=== PATIENT | female | born 1995 | race Caucasian/White ===

== ENCOUNTER 2016-07-18 08:53 | Emergency (ER) | payer SELFPAY ==
[2016-07-18 09:01] VITALS: BP 118/72
--- NOTE | 2016-07-18 09:35 | ER Document Report ---
ED General - General Chief Complaint: Back Pain Stated Complaint: back pain Notes: Patient says she's been experiencing chest pains in the center of her chest for the past couple of days. The pain is constant, but worsened by movement, deep breath, pressing on the area. Patient says she gets these chest pains "all the time for at least the past 5 years, but it got worse yesterday. Her most recent episode of such pain was in March. Was seen by medical care provider and no cause found. Patient also says that she is experiencing lower back pains for the past day and a half. Does not recall any unusual activity or straining of her back. Does not have any UTI symptoms. Some nausea but no vomiting. No significant cough or cold or chest congestion. Patient says that she gets panic attacks and suffers from anxiety for which she is seen at [facility] and she has Klonopin to take as needed. Patient denies being stressed or anxious today. Says she feels "happy go [place]". LMP early this month (July) TRAVEL OUTSIDE OF THE [place] IN LAST 30 DAYS: No - Related Data Allergies/Adverse Reactions: No Known Allergies Allergy (Verified 07/18/16 09:03) Past Medical History - Social History Smoking Status: Never Smoker Cigarette use (# per day): No Chew tobacco use (# tins/day): No Frequency of alcohol use: None Drug Abuse: None Family History: Reviewed & Not Pertinent Patient has suicidal ideation: No Patient has homicidal ideation: No Renal/ Medical History: Denies: Hx Peritoneal Dialysis Review of Systems - Review of Systems Notes: REVIEW OF SYSTEMS: CONSTITUTIONAL : Denies fever. EENT: Denies eye, ear, nose or mouth or throat pain or other symptoms. CARDIOVASCULAR: See history of present illness. RESPIRATORY: Denies cough, chest congestion, or shortness of breath. GASTROINTESTINAL: Denies abdominal pain or vomiting, or diarrhea. Some nausea. GENITOURINARY: Denies difficulty or painful urinating, urinary frequency, blood in urine. MUSCULOSKELETAL: Denies neck pain. Denies joint pain or swelling. See history of present illness regarding back pain. SKIN: Denies rash or skin lesions. NEUROLOGICAL: Denies LOC or altered mental status. Denies headache. Denies sensory loss or motor deficits. PSYCHIATRIC: History of anxiety and panic attacks ALL OTHER SYSTEMS REVIEWED AND NEGATIVE. Physical Exam - Vital signs Vitals: Temp Pulse Resp BP Pulse Ox 97.5 F 77 16 118/72 99 07/18/16 09:00 07/18/16 09:00 07/18/16 09:00 07/18/16 09:00 07/18/16 09:00 Interpretation: Normal - Notes Notes: PHYSICAL EXAMINATION: GENERAL: Well-appearing, in no acute distress. Vital signs are all normal. Does not appear to be in distress or ill. HEAD: Atraumatic, normocephalic. LUNGS: Breath sounds clear and equal bilaterally. Tender to touch or press in the upper central anterior chest region, even with the stethoscope when listening to the patient's lungs and heart. HEART: Regular rate and rhythm without murmurs. No rubs. ABDOMEN: Soft, nontender. No guarding or rebound. BACK: No tenderness throughout entire spine. Tender to press and palpate in both flank regions. EXTREMITIES: Normal range of motion without pain. PSYCH: Anxious. SKIN: Warm, dry, no rashes. Course - Re-evaluation Re-evalutation: 07/18/16 11:41 Urine looks suspicious for a UTI. I'm going to give the patient Macrobid for a week. Urine will be cultured. Advised patient that workup for her chest pain did not show any significant findings - Vital Signs Vital signs: Temp Pulse Resp BP Pulse Ox 97.5 F 77 16 118/72 100 07/18/16 11:24 07/18/16 11:24 07/18/16 11:24 07/18/16 11:24 07/18/16 11:24 - Laboratory Laboratory results interpreted by nm: 07/18/16 09:45 Urine Ketones TRACE H Ur Leukocyte Esterase LARGE H Urine microscopic confirms dipstick suggesting a UTI - Diagnostic Test Radiology results interpreted by nm: 07/18/16 10:55 Chest x-ray is normal. - EKG Interpretation by Hi EKG shows normal: Sinus rhythm Rate: Normal Rhythm: NSR Additional EKG results interpreted by nm: 07/18/16 10:56 EKG is normal. Discharge - Discharge Clinical Impression: Non-cardiac chest pain UTI (urinary tract infection) Qualifiers: Urinary tract infection type: site unspecified Hematuria presence: without hematuria Qualified Code(s): N39.0 - Urinary tract infection, site not specified Condition: Stable Disposition: HOME, SELF-CARE Additional Instructions: URINARY TRACT INFECTION: Your evaluation indicates that you have a urinary tract infection. This is due to germs growing in the bladder. This is a common problem. This infection usually responds quickly to antibiotics. Your antibiotic should be taken exactly as prescribed. Drink plenty of fluids -- three to four quarts a day. Occasionally, a bladder anesthetic will be prescribed to help stop the feeling of urgency until the antibiotic has a chance to clear the infection. This may cause your urine to be dark orange. Certain urine infections require a culture. If the doctor obtained a culture, the results will be back in two days. You should call to see if a change in treatment is needed. A repeat urinalysis after you finish treatment is often recommended. The physician will let you know if further testing is required. Call the doctor if you develop fever, chills, flank pain, inability to urinate, or blood in the urine. ANTIBIOTIC THERAPY: You have been given an antibiotic prescription. It's important that you take all the medication, unless instructed otherwise by your physician. Failure to complete the entire course can result in relapse of your condition. Common side effects of antibiotics include nausea, intestinal cramping, or diarrhea. Women may develop vaginal yeast infections, and babies can get yeast (thrush) in the mouth following the use of antibiotics. Contact your physician if you develop significant side effects from this medication. Allergy to this antibiotic can result in hives, wheezing, faintness, or itching. If symptoms of allergy occur, stop the medication and call the doctor. NITROFURANTOIN (MACRODANTIN, MACROBID): You have received a prescription for nitrofurantoin (Macrodantin). This antibiotic is used for urinary tract infections. Women who are or nursing should notify the physician before taking this medicine. If you have ever had a problem caused by this medication in the past, be sure the physician is aware of it. Common side effects of this medicine include nausea, vomiting, or decreased appetite. Notify your physician if these side effects become severe. Immediately stop this medicine and call the physician if you develop cough , shortness of breath, chest pain, weakness, jaundice (yellow color of the skin and whites of the eyes), or a skin rash. CHEST PAIN OF UNCLEAR CAUSE: The exact cause of your chest pain isn't clear. Fortunately, there is no evidence of a dangerous medical condition. Further testing may be required to find the source of the pain. Most often, we find that this pain is coming from the chest wall -- the muscles or rib joints in the chest. But chest pain can come from the lung and lung lining, the esophagus, the heart valves or heart lining, and even the stomach or gallbladder. Rest. Eat lightly until the pain is gone. We may prescribe medicine for pain and inflammation. You should call the physician immediately if the pain radiates to the shoulder, jaw or arms; if you start to run a fever or develop a cough; or if you develop shortness of breath, or other new or alarming symptoms. CHEST WALL PAIN: Your chest pain may be coming from the chest wall. This is often caused by straining the muscles or joints in the chest during physical activity, direct trauma, coughing, or vigorous vomiting. Persons with arthritis are especially prone to this type of pain, due to inflammation of the cartilage joints near the breast bone. Occasionally, no cause can be found. Rest from strenuous physical activity. This kind of chest pain is usually made worse by movement of the chest. Depending on the symptoms, we may prescribe medicine for pain, muscle relaxation, and antiinflammatory effects. If the pain is new, and seems to be due to muscle strain, cold packs can help. Otherwise, apply gentle warmth to the painful area for 15 minutes every hour or two. You should call contact the doctor immediately if things change. Further evaluation is needed if you develop a fever or cough, if the nature of the pain changes, or if you become short of breath. Anxiety The physician feels that some of your health problems are being caused by anxiety. Anxiety affects your health in many ways. Anxiety alone can cause palpitations, sweats, chest pains, abdominal pains, shortness of breath, and headaches. It contributes to ulcer disease, high blood pressure, irritable bowel syndrome, and has been shown to cause flare-ups of many other diseases. Anxiety is not a simple disorder to treat. If the anxiety is due to recent life stresses, you may simply need time to "work through" the changes. If the anxiety is due to an underlying unhappiness with yourself or due to psychiatric disturbance, professional help will be needed. Your physician can refer you for further help if needed. Anti-anxiety medication is occasionally given if the stress is acute or if you are having trouble sleeping. Chronic or frequent use of these medications is not a good idea because the body becomes reliant on it, preventing you from dealing with life's normal stresses. USE OF ACETAMINOPHEN (Tylenol): Acetaminophen may be taken for pain relief or fever control. It's much safer than aspirin, offering a wider range of "safe" dosages. It is safe during . Some brand names are Tylenol, Panadol, Datril, Anacin 3, Tempra, and Liquiprin. Acetaminophen can be repeated every four hours. The following are maximum recommended dosages: WEIGHT Dose Drops Elixir Chewable( 80mg) (LBS.) drprs=droppers tsp=teaspoon >89 pounds or adults 650 mg to 900 mg Acetaminophen can be repeated every four hours. Maximum dose not to exceed 4000 mg a day. These maximum recommended dosages are slightly higher than the dosages written on the product container, but these dosages are very safe and below the toxic dosage for acetaminophen. FOLLOW-UP CARE: If you have been referred to a physician for follow-up care, call the physician s office for an appointment as you were instructed or within the next two days. If you experience worsening or a significant change in your symptoms, notify the physician immediately or return to the Emergency Department at any time for re-evaluation. Prescriptions: Nitrofurantoin/Nitrofuran Mac [Macrobid 100 mg Capsule] 1 tab PO BID #14 capsule Forms: Return to Work
[2016-07-18 10:27] LABS: APPEARANCE,URINE CLOUDY; BILIRUBIN,URINE NEGATIVE (NEGATIVE); GLUCOSE, URINE NEGATIVE (NEGATIVE); KETONES,URINE TRACE mg/dL (NEGATIVE); LEUKOCYTE ESTERASE,URINE LARGE (NEGATIVE); NITRITE,URINE NEGATIVE (NEGATIVE); PROTEIN,URINE NEGATIVE (NEGATIVE); URINE SPECIFIC GRAVITY 1.029; UROBILINOGEN,URINE NEGATIVE mg/dL (<2.0)
[2016-07-18] MEDS ORDERED: ACETAMINOPHEN 325 MG TABLET PO ONE (10:46)
[2016-07-18] MEDS ORDERED: NITROFURANTOIN MONOHYD/M-CRYST 100 MG CAPSULE PO ONE (10:54)
--- NOTE | 2016-07-18 16:29 | EKG REPORT ---
SEVERITY:- NORMAL ECG - SINUS RHYTHM : Confirmed by: Mir Trotter MD 18-Jul-2016 16:28:57
== END 2016-07-18 11:26 | disposition home or self-care (01) ==
LOC: ER 08:53
DX: N39.0 Urinary tract infection, site not specified (principal); R07.89 Other chest pain; M54.9 Dorsalgia, unspecified
CPT/HCPCS: 93005; 99284; 36415; 87086; 81001; 71020; 93010; J8499

== ENCOUNTER 2016-10-18 07:55 | Emergency (ER) | payer SELFPAY ==
[2016-10-18] MEDS ORDERED: DIPH/PERTUSS(ACELL)/TETANUS VAC/PF 0.5 ML SYR (>=10YO) IM ONE (08:01)
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
[2016-10-18 09:18] LABS: ABSOLUTE LYMPHOCYTES (AUTO) 1.6 10^3/uL (0.5-4.7); ABSOLUTE MONOCYTES (AUTO) 0.6 10^3/uL (0.1-1.4); BASOPHILS % (AUTO) 0.3 % (0-2); EOSINOPHILS % (AUTO) 0.4 % (0-6); HEMATOCRIT 38.6 % (36.0-47.0); HEMOGLOBIN 13.1 g/dL (12.0-15.5); HGB HCT DIFFERENCE 0.7; LYMPHOCYTES % (AUTO) 19.7 % (13-45); MEAN CORPUSCULAR HEMOGLOBIN 28.9 pg (27.0-33.4); MEAN CORPUSCULAR HGB CONC 33.9 g/dL (32.0-36.0); MEAN CORPUSCULAR VOLUME 85 fl (80-97); MONOCYTES % (AUTO) 6.8 % (3-13); RED BLOOD COUNT 4.54 10^6/uL (3.72-5.28); RED CELL DISTRIBUTION WIDTH 14.2 % (11.5-14.0); SEGMENTED NEUTROPHILS % (AUTO) 72.8 % (42-78); WHITE BLOOD COUNT 8.3 10^3/uL (4.0-10.5)
[2016-10-18 09:36] LABS: ALANINE AMINOTRANSFERASE 25 U/L (9-52); ALBUMIN 4.8 g/dL (3.5-5.0); ALKALINE PHOSPHATASE 90 U/L (38-126); ANION GAP 14 (5-19); ASPARTATE AMINO TRANSFERASE 22 U/L (14-36); BILIRUBIN,DIRECT 0.1 mg/dL (0.0-0.4); BILIRUBIN,TOTAL 0.9 mg/dL (0.2-1.3); BLOOD UREA NITROGEN 10 mg/dL (7-20); CALCIUM 9.9 mg/dL (8.4-10.2); CARBON DIOXIDE 25 mmol/L (22-30); CHLORIDE 103 mmol/L (98-107); CREATININE RESULT 0.61 mg/dL (0.52-1.25); GLUCOSE 100 mg/dL (75-110); POTASSIUM 3.9 mmol/L (3.6-5.0); SODIUM 142.1 mmol/L (137-145); TOTAL PROTEIN 7.7 g/dL (6.3-8.2)
[2016-10-18 09:37] LABS: ALCOHOL < 10 mg/dL (NONE DETECTED)
[2016-10-18 10:56] LABS: APPEARANCE,URINE CLOUDY; BILIRUBIN,URINE NEGATIVE (NEGATIVE); GLUCOSE, URINE NEGATIVE (NEGATIVE); KETONES,URINE 20 mg/dL (NEGATIVE); LEUKOCYTE ESTERASE,URINE LARGE (NEGATIVE); NITRITE,URINE NEGATIVE (NEGATIVE); PROTEIN,URINE 30 mg/dL (NEGATIVE); URINE SPECIFIC GRAVITY 1.031; UROBILINOGEN,URINE NEGATIVE mg/dL (<2.0)
[2016-10-18 11:15] LABS: URINE BARBITURATES SCREEN NEGATIVE; URINE METHADONE SCREEN NEGATIVE; URINE OPIATES LOW NEGATIVE; URINE PHENCYCLIDINE SCREEN NEGATIVE
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
[2016-10-18 14:08] VITALS: BP 106/63
--- NOTE | 2016-10-18 20:06 | EKG REPORT ---
SEVERITY:- NORMAL ECG - SINUS RHYTHM : Confirmed by: Angie Mcdaniels MD 18-Oct-2016 20:05:18
== END 2016-10-18 14:15 | disposition home or self-care (01) ==
LOC: ER 07:55
DX: S41.119A Laceration without foreign body of unspecified upper arm, initial encounter (principal); F41.9 Anxiety disorder, unspecified; F44.9 Dissociative and conversion disorder, unspecified; F32.9 Major depressive disorder, single episode, unspecified; X78.9XXA Intentional self-harm by unspecified sharp object, initial encounter; Y93.9 Activity, unspecified
CPT/HCPCS: 36415; 80053; 80307; 81001; 84703; 85025; 90471; 90715; 93005; 93010; 99284

== ENCOUNTER 2016-12-21 12:56 | Emergency (ER) | payer SELFPAY ==
--- NOTE | 2016-12-21 13:49 | ER Document Report ---
ED Medical Screen (RME) - General Chief Complaint: Abdominal Pain Stated Complaint: ABDOMINAL PAIN Time Seen by Provider: 12/21/16 13:46 Notes: Patient says that she suddenly began to have pain in her right lower quadrant area about 7 PM last night. She has a history of kidney infections, but does not have symptoms like a kidney infection with this pain. The pain was very severe. She has had nausea, vomiting, and diarrhea which is unusual for her. She normally has 1 bowel movement a week, but had 3 bowel movements last night and that did not relieve her symptoms. She has not had any blood in her stools. Has not had a fever. LMP late September. [facility]. No abdominal surgeries. History of anxiety. TRAVEL OUTSIDE OF THE [place] IN LAST 30 DAYS: No - Related Data Allergies/Adverse Reactions: No Known Allergies Allergy (Verified 12/21/16 13:01) Past Medical History - Social History Chew tobacco use (# tins/day): No Frequency of alcohol use: None Drug Abuse: None Renal/ Medical History: Denies: Hx Peritoneal Dialysis Psychiatric Medical History: Reports: Hx Anxiety, Hx Depression - cutter Surgical Hx: Negative - Immunizations Hx Diphtheria, Pertussis, Tetanus Vaccination: Yes Physical Exam - Vital signs Vitals: Temp Pulse Resp BP Pulse Ox 97.9 F 81 16 111/70 100 12/21/16 13:01 12/21/16 13:01 12/21/16 13:01 12/21/16 13:01 12/21/16 13:01 Course - Vital Signs Vital signs: Temp Pulse Resp BP Pulse Ox 97.9 F 81 16 111/70 100 12/21/16 13:01 12/21/16 13:01 12/21/16 13:01 12/21/16 13:01 12/21/16 13:01
[2016-12-21 14:56] LABS: ABSOLUTE LYMPHOCYTES (AUTO) 2.3 10^3/uL (0.5-4.7); ABSOLUTE MONOCYTES (AUTO) 0.5 10^3/uL (0.1-1.4); ABSOLUTE NEUT (AUTO) 4.5 10^3/uL (1.7-8.2); BASOPHILS % (AUTO) 0.6 % (0-2); EOSINOPHILS % (AUTO) 0.5 % (0-6); HEMATOCRIT 40.7 % (36.0-47.0); HEMOGLOBIN 13.2 g/dL (12.0-15.5); HGB HCT DIFFERENCE -1.1; LYMPHOCYTES % (AUTO) 31.6 % (13-45); MEAN CORPUSCULAR HGB CONC 32.3 g/dL (32.0-36.0); MEAN CORPUSCULAR VOLUME 87 fl (80-97); MONOCYTES % (AUTO) 6.7 % (3-13); RED CELL DISTRIBUTION WIDTH 14.5 % (11.5-14.0); SEGMENTED NEUTROPHILS % (AUTO) 60.6 % (42-78); WHITE BLOOD COUNT 7.4 10^3/uL (4.0-10.5)
[2016-12-21 15:03] LABS: APPEARANCE,URINE SLIGHTLY-CLOUDY; BILIRUBIN,URINE NEGATIVE (NEGATIVE); GLUCOSE, URINE NEGATIVE (NEGATIVE); KETONES,URINE NEGATIVE (NEGATIVE); LEUKOCYTE ESTERASE,URINE TRACE (NEGATIVE); NITRITE,URINE NEGATIVE (NEGATIVE); PROTEIN,URINE NEGATIVE (NEGATIVE); URINE SPECIFIC GRAVITY 1.009; UROBILINOGEN,URINE NEGATIVE mg/dL (<2.0)
[2016-12-21 15:12] LABS: ALANINE AMINOTRANSFERASE 22 U/L (9-52); ALBUMIN 4.9 g/dL (3.5-5.0); ALKALINE PHOSPHATASE 77 U/L (38-126); ANION GAP 16 (5-19); ASPARTATE AMINO TRANSFERASE 27 U/L (14-36); BILIRUBIN,DIRECT 0.3 mg/dL (0.0-0.4); BILIRUBIN,TOTAL 1.2 mg/dL (0.2-1.3); BLOOD UREA NITROGEN 8 mg/dL (7-20); CALCIUM 9.8 mg/dL (8.4-10.2); CARBON DIOXIDE 24 mmol/L (22-30); CHLORIDE 102 mmol/L (98-107); CREATININE RESULT 0.65 mg/dL (0.52-1.25); GLUCOSE 84 mg/dL (75-110); LIPASE 108.1 U/L (23-300); POTASSIUM 4.4 mmol/L (3.6-5.0); SODIUM 141.8 mmol/L (137-145); TOTAL PROTEIN 8.5 g/dL (6.3-8.2)
[2016-12-21] MEDS ORDERED: OXYCODONE-ACETAMINOPHEN 5-325 MG TABLET PO ONE (15:57)
[2016-12-21] MEDS ORDERED: ONDANSETRON 4 MG TAB.RAPDIS PO ONE (15:57)
--- NOTE | 2016-12-21 16:01 | ER Document Report ---
ED General - General Chief Complaint: Abdominal Pain Stated Complaint: ABDOMINAL PAIN Time Seen by Provider: 12/21/16 13:46 Mode of Arrival: Ambulatory Information source: Patient Notes: This is a 21-year-old female with a history of kidney infections in the past who presents with a right lower quadrant tenderness since last night (7:30 PM). The patient denies any vaginal discharge. She denies any recent sex. She states that her last normal period was in September but that it has been irregular and she has been under a lot of stress. She denies any nausea or vomiting and states she is very hungry at this time. TRAVEL OUTSIDE OF THE [place] IN LAST 30 DAYS: No - HPI Onset: Yesterday Onset/Duration: Gradual Quality of pain: Dull Severity: Moderate Pain Level: 2 Associated symptoms: Diarrhea. denies: Chest pain, Fever, Nausea, Vomiting, Shortness of breath Exacerbated by: Denies Relieved by: Denies Similar symptoms previously: No Recently seen / treated by doctor: No - Related Data Allergies/Adverse Reactions: No Known Allergies Allergy (Verified 12/21/16 13:01) Past Medical History - General Information source: Patient - Social History Smoking Status: Former Smoker Cigarette use (# per day): No Chew tobacco use (# tins/day): No Frequency of alcohol use: None Drug Abuse: None Lives with: Family Family History: Reviewed & Not Pertinent Patient has suicidal ideation: No Patient has homicidal ideation: No - Past Medical History Cardiac Medical History: Reports: None Pulmonary Medical History: Reports: None EENT Medical History: Reports: None Neurological Medical History: Reports: None Endocrine Medical History: Reports: None Renal/ Medical History: Reports: Other - utis. Denies: Hx Peritoneal Dialysis Malignancy Medical History: Reports: None GI Medical History: Reports: None Musculoskeltal Medical History: Reports None Skin Medical History: Reports None Psychiatric Medical History: Reports: Hx Anxiety, Hx Depression - cutter Surgical Hx: Negative - Immunizations Hx Diphtheria, Pertussis, Tetanus Vaccination: Yes Review of Systems - Review of Systems Constitutional: denies: Chills, Fever EENT: No symptoms reported Cardiovascular: No symptoms reported Respiratory: No symptoms reported Gastrointestinal: See HPI Genitourinary: denies: Burning, Dysuria, Discharge, Frequency Female Genitourinary: Other - no recent sexual activity. denies: Vaginal discharge, Vaginal odor Musculoskeletal: No symptoms reported Skin: No symptoms reported Hematologic/Lymphatic: No symptoms reported Neurological/Psychological: No symptoms reported Physical Exam - Vital signs Vitals: Temp Pulse Resp BP Pulse Ox 97.9 F 81 16 111/70 100 12/21/16 13:01 12/21/16 13:01 12/21/16 13:01 12/21/16 13:01 12/21/16 13:01 Notes: Physical exam: GENERAL:-year-old female, alert and oriented 3, no acute distress HEAD: Atraumatic, normocephalic. EYES: Pupils equal round and reactive to light, extraocular movements intact, sclera anicteric, conjunctiva are normal. ENT: TMs normal, nares patent, oropharynx clear without exudates. Moist mucous membranes. NECK: Normal range of motion, supple without lymphadenopathy or JVD. LUNGS: Breath sounds clear to auscultation bilaterally and equal. No wheezes rales or rhonchi. HEART: Regular rate and rhythm without murmurs, rubs or gallops. ABDOMEN: Soft, normoactive bowel sounds. Patient does have right lower quadrant tenderness without rebound or guarding. No CVA tenderness. no masses appreciated. EXTREMITIES: Normal range of motion, no pitting or edema. No clubbing or cyanosis. NEUROLOGICAL: Cranial nerves II through XII grossly intact. Normal speech, normal gait. PSYCH: Normal mood, normal affect. SKIN: Warm, Dry, normal turgor, no rashes or lesions noted. Course - Re-evaluation Re-evalutation: 12/21/16 22:18 pt Looks good on exam prior to discharge. - Vital Signs Vital signs: Temp Pulse Resp BP Pulse Ox 97.6 F 86 18 106/65 96 12/21/16 21:10 12/21/16 21:10 12/21/16 21:10 12/21/16 21:10 12/21/16 21:10 - Laboratory Result Diagrams: 12/21/16 14:25 12/21/16 14:25 Laboratory results interpreted by me: 12/21/16 12/21/16 12/21/16 14:25 14:25 14:25 RDW 14.5 H Total Protein 8.5 H Ur Leukocyte Esterase TRACE H - Diagnostic Test Radiology reviewed: Image reviewed, Reports reviewed - Abdomen shows no acute intra-abdominal process. Ultrasound does show a left complex cyst but this is not in the area of the patient's pain. There is good blood flow to the right ovary. Discharge - Discharge Clinical Impression: abdominal pain Condition: Stable Disposition: HOME, SELF-CARE Instructions: Abdominal Pain ([facility]) Additional Instructions: Recommendations: Rest, drink plenty of fluids, take pain medicine as needed. Take nausea medicine as needed Return to work tomorrow: Light duty for 1 day. Follow-up with your primary care doctor: Bring a copy of today's lab work, CT and ultrasound with you Into the emergency room for worsening pain, fever or any concerns or getting worse. The pain medicine you're taking prescribed as a narcotic. There are several important things you should know about this medicine: 1. This medicine contains Tylenol: It is important that you do not take Tylenol (or acetaminophen) while on this medicine. Tylenol is metabolized by the liver and taking too much Tylenol (acetaminophen) can lay to liver damage and even liver failure. 2. Taking narcotics for too long can lead to physical and mental dependence. Take this medicine only if really needed and in the lowest quantity to achieve pain relief. 3. Do not drink alcohol while on this medicine. Alcohol interacts with narcotics and the combination can be dangerous. 4. Do not drive or operate machinery while on this medicine. 5. Narcotics do cause constipation, so drink plenty of fluids and daily stool softeners. Prescriptions: Ondansetron HCl [Zofran 4 mg Tablet] 1 - 2 tab PO Q4H PRN #10 tablet PRN Reason: Oxycodone HCl/Acetaminophen [Percocet 5-325 mg Tablet] 1 - 2 tab PO ASDIR PRN # 15 tablet PRN Reason: Forms: Restricted Release, Return to Work
--- NOTE | 2016-12-21 17:33 | RADIOLOGY REPORT (SQ) ---
EXAM DESCRIPTION: U/S NON OB PEL TV W/DOPPLER COMPLETED DATE/TIME: 12/21/2016 5:21 pm REASON FOR STUDY: assess right ovary COMPARISON: None. TECHNIQUE: Dynamic and static grayscale images acquired of the pelvis via transvaginal approach and recorded on PACS. Additional selected color Doppler and spectral images recorded. LIMITATIONS: None. FINDINGS: UTERUS: Contour normal. No mass. ENDOMETRIAL STRIPE: No focal or generalized thickening. No masses. Couple hypoechoic areas are ident ified. CERVIX: No nabothian cysts. RIGHT OVARY: No abnormal masses. RIGHT OVARY DOPPLER: Normal arterial vascular flow without evidence for torsion. LEFT OVARY: Complex area is identified measuring 1.4 x 1.3 x 0.6 cm in diameters which may represent a hemorrhagic or other complex cysts. LEFT OVARY DOPPLER: Normal arterial vascular flow without evidence for torsion. FREE FLUID: Small amount of free fluid is identified in the posterior cul-de-sac. OTHER: No other significant finding. MEASUREMENTS: UTERUS: 8.1 x 5.6 x 4.5 cm ENDOMETRIAL STRIPE: 7 mm RIGHT OVARY: 2.9 x 1.3 x 1.7 cm LEFT OVARY: 3.5 x 2.2 x 1.7 cm IMPRESSION: No significant findings in the right adnexa or right ovary. Complex area in the left ov almas which could represent hemorrhagic or other complex cysts. Other findings as noted above TECHNICAL DOCUMENTATION: JOB ID: [id number] 9269[employer]- All Rights Reserved
[2016-12-21] MEDS ORDERED: MORPHINE SULFATE 10 MG/ML INJ IV ONE (18:36)
[2016-12-21] MEDS ORDERED: NORMAL SALINE 1000 ML 1,000 ML IV PRN (18:36)
--- NOTE | 2016-12-21 20:41 | RADIOLOGY REPORT (SQ) ---
EXAM DESCRIPTION: CT ABD/PELVIS WITH IV ONLY COMPLETED DATE/TIME: 12/21/2016 8:02 pm REASON FOR STUDY: abd pain COMPARISON: None. TECHNIQUE: CT scan of the abdomen and pelvis performed using helical scanning technique with dynamic intravenous contrast injection. No oral contrast. Images reviewed with lung, soft tissue, and bone windows. Reconstructed coronal and sagittal MPR images reviewed. Delayed images for evaluation of the urinary system also acquired. All images stored on PACS. All CT scanners at this facility use dose modulation, iterative reconstruction, and/or weight based d osing when appropriate to reduce radiation dose to as low as reasonably achievable (ALARA). [facility]: Dose Right [facility]: CareDose [facility]: Dose Right [facility]: Teradose 4D [facility]: Klinq CONTRAST TYPE AND DOSE: contrast/concentration: Isovue 370.00 mg/ml; Total Contrast Delivered: 54.0 ml; Total Saline Delivered: 50.0 ml 54 Isovue 370 RENAL FUNCTION: Creatinine 0.65 RADIATION DOSE: 9.60. LIMITATIONS: None. FINDINGS: LOWER CHEST: No significant findings. No nodules or infiltrates. LIVER: Normal size. No masses or dilated ducts. SPLEEN: Normal size. No focal lesions. PANCREAS: No masses. No significant calcifications. No adjacent inflammation or peripancreatic fluid collections. Pancreatic duct not dilated. GALLBLADDER: No identified stones by CT criteria. No inflammatory changes to suggest cholecystitis. ADRENAL GLANDS: No significant masses or asymmetry. RIGHT KIDNEY AND URETER: No solid masses. No significant calcifications. No hydronephrosis or hyd roureter. LEFT KIDNEY AND URETER: No solid masses. No significant calcifications. No hydronephrosis or hydr oureter. AORTA AND VESSELS: No aneurysm. No dissection. Renal arteries, SMA, celiac without stenosis. RETROPERITONEUM: No retroperitoneal adenopathy, hemorrhage or masses. BOWEL AND PERITONEAL CAVITY: No masses or inflammatory changes. No free fluid or peritoneal masses. APPENDIX: Appendix is not definitely identified. PELVIS: No mass or free fluid. Normal bladder. ABDOMINAL WALL: No masses. No hernias. BONES: No significant or acute findings. OTHER: No other significant finding. IMPRESSION: NO SIGNIFICANT OR ACUTE FINDING IN THE ABDOMEN OR PELVIS ON CT SCAN WITH IV CONTRAST. TECHNICAL DOCUMENTATION: JOB ID: [id number] Quality ID # [id number]: Final reports with documentation of one or more dose reduction techniques (e.g., Au tomated exposure control, adjustment of the mA and/or kV according to patient size, use of iterative reconstruction technique) 2010 [employer]- All Rights Reserved
[2016-12-21 21:15] VITALS: BP 106/65
== END 2016-12-21 21:10 | disposition home or self-care (01) ==
LOC: ER 12:56
DX: R10.9 Unspecified abdominal pain (principal); N83.202 Unspecified ovarian cyst, left side; R10.813 Right lower quadrant abdominal tenderness; R19.7 Diarrhea, unspecified; N92.6 Irregular menstruation, unspecified; Z87.440 Personal history of urinary (tract) infections; Z87.891 Personal history of nicotine dependence
CPT/HCPCS: 99284; 96361; 96374; 36415; 83690; 84703; 85025; 80053; 81001; 76830; 93976; 74177; S0119; J2270; J7030

== ENCOUNTER 2017-03-29 21:28 | Emergency (ER) | payer OTHER ==
[2017-03-29 22:44] LABS: APPEARANCE,URINE SLIGHTLY-CLOUDY; BILIRUBIN,URINE NEGATIVE (NEGATIVE); GLUCOSE, URINE NEGATIVE (NEGATIVE); KETONES,URINE NEGATIVE (NEGATIVE); LEUKOCYTE ESTERASE,URINE MODERATE (NEGATIVE); NITRITE,URINE NEGATIVE (NEGATIVE); PROTEIN,URINE NEGATIVE (NEGATIVE); URINE SPECIFIC GRAVITY 1.005; UROBILINOGEN,URINE NEGATIVE mg/dL (<2.0)
[2017-03-30] MEDS ORDERED: KETOROLAC TROMETHAMINE INJ/PF 30 MG/1 ML SDV IV ONE (00:40)
[2017-03-30] MEDS ORDERED: METOCLOPRAMIDE HCL INJ/PF 10 MG/2 ML SDV IV ONE (00:40)
[2017-03-30] MEDS ORDERED: DIPHENHYDRAMINE HCL 50 MG/ML VIAL IV ONE (00:40)
--- NOTE | 2017-03-30 00:43 | ER Document Report ---
ED General - General Chief Complaint: Headache Stated Complaint: DIZZINESS Time Seen by Provider: 03/30/17 00:35 Notes: Patient is a 21-year-old female with history of migraines who presents with 4 days of a migraine headache. She says it started out as her typical migraine. She says she took [id number] medications but over the course of the last few days it has gotten worse now she has soreness that is going into her entire body from her headache. She says she has a lot of photophobia with it. She denies any focal weakness or numbness. No difficulty in relating. She did vomit once today. No diarrhea. No fevers. No infections. No other complaints this time. Headache was not sudden in onset. It was gradual in onset. It is gradually worsened over the course of several days. She does not have a doctor. TRAVEL OUTSIDE OF THE [place] IN LAST 30 DAYS: No - Related Data Allergies/Adverse Reactions: No Known Allergies Allergy (Verified 12/21/16 13:01) Past Medical History - Social History Smoking Status: Never Smoker Chew tobacco use (# tins/day): No Frequency of alcohol use: None Drug Abuse: None Family History: Reviewed & Not Pertinent Patient has suicidal ideation: No Patient has homicidal ideation: No Renal/ Medical History: Denies: Hx Peritoneal Dialysis Psychiatric Medical History: Reports: Hx Anxiety, Hx Depression - cutter Surgical Hx: Negative - Immunizations Hx Diphtheria, Pertussis, Tetanus Vaccination: Yes Review of Systems - Review of Systems Notes: My Normal Review Basic REVIEW OF SYSTEMS: CONSTITUTIONAL : Denies fever, chills, or sweats. Denies recent illness.. RESPIRATORY: Denies cough, cold, or chest congestion. Denies shortness of breath, difficulty breathing, or wheezing. GASTROINTESTINAL: Denies abdominal pain. Some vomiting. MUSCULOSKELETAL: Body aches SKIN: Denies rash or skin lesions. NEUROLOGICAL: Denies altered mental status or loss of consciousness. Has a headache. Denies weakness or paralysis or loss of use of either side. Denies problems with gait or speech. Denies sensory or motor loss. ALL OTHER SYSTEMS REVIEWED AND NEGATIVE. Physical Exam - Vital signs Vitals: Temp Pulse Resp BP Pulse Ox 97.7 F 76 14 124/81 100 03/29/17 22:23 03/29/17 22:23 03/29/17 22:23 03/29/17 22:23 03/29/17 22:23 - Notes Notes: General Appearance: Well nourished, alert, cooperative, no acute distress, no obvious discomfort. Vitals: reviewed, See vital signs table. Head: no swelling or tenderness to the head Eyes: PERRL, EOMI, Conjuctiva clear Mouth: No decreasd moisture Throat: No tonsillar inflammation, No airway obstruction, No lymphadenopathy Neck: Supple Lungs: No wheezing, No rales, No rhonci, No accessory muscle use, good air exchange bilaterally. Heart: Normal rate, Regular rythm, No murmur, no rub Abdomen: Normal BS, soft, No rigidity, No abdominal tenderness, No guarding, no rebound, no abdominal masses, no organomegaly Extremities: strength 5/5 in all extremities, good pulses in all extremities, no swelling or tenderness in the extremities, no edema. Skin: warm, dry, appropriate color, no rash Neuro: speech clear, oriented x 3, normal affect, responds appropriately to questions. Cranial nerves II through XII are intact. Distal sensation intact. Normal gait. Course - Re-evaluation Re-evalutation: 03/30/17 05:36 Patient's headache was completely relieved with the Benadryl and Reglan. She feels and looks much better. She no longer has photophobia. She is taking sunglasses off. I did talked her length about chronic migraines headaches and need to follow-up with the neurologist for further workup. She is agreeable to this. I encouraged her return to ER immediately if she has recurrent worsening headaches, vomiting, or feels unwell. I do not suspect subarachnoid hemorrhage. Patient has no focal neurologic deficits. Headache was gradual in onset. Dictation of this chart was performed using voice recognition software; therefore, there may be some unintended grammatical errors. - Vital Signs Vital signs: Temp Pulse Resp BP Pulse Ox 97.7 F 70 20 121/66 98 03/29/17 22:23 03/30/17 01:40 03/30/17 01:40 03/30/17 01:40 03/30/17 01:40 - Laboratory Laboratory results interpreted by me: 03/29/17 22:30 Ur Leukocyte Esterase MODERATE H Discharge - Discharge Clinical Impression: Headache Qualifiers: Headache type: unspecified Headache chronicity pattern: acute headache Intractability: not intractable Qualified Code(s): R51 - Headache Condition: Good Disposition: HOME, SELF-CARE Additional Instructions: I suspect that your headache is caused by your underlying migraine disorder. It is very important that you still follow up with a doctor. Sometimes headaches can be caused by things such as tumors or cancer; however, I think that is unlikely in your case because you did not have associated neurologic deficits and you have been having headaches for a long time. Nonetheless it is still important that you follow-up with a doctor or neurologist to further workup performed such as MRI if your headaches do continue to occur. I will write down the name of a local neurologist for you to follow-up with. I will prescribe you Reglan. Take this with 25 mg of Benadryl and will help relieve your headaches if they return. Return to ER immediately if you have intractable headache, recurrent vomiting, focal weakness or numbness, or feel unwell. Prescriptions: Metoclopramide HCl [Reglan 10 mg Tablet] 1 tab PO ASDIR PRN #25 tablet PRN Reason: Forms: Return to Work Referrals: ELVIN ELIAS MD [ACTIVE STAFF] - Follow up in 3-5 days
[2017-03-30 01:41] VITALS: BP 121/66
== END 2017-03-30 01:40 | disposition home or self-care (01) ==
LOC: ER 21:28
DX: R51 Headache (principal); R42 Dizziness and giddiness; H53.149 Visual discomfort, unspecified; R11.10 Vomiting, unspecified
CPT/HCPCS: 99284; 96374; 96375; 81025; 81001; J1200; J1885; J2765